=== PATIENT | female | born 1960 | race Caucasian/White ===

== ENCOUNTER 2017-08-06 03:10 | Emergency (ER) | payer OTHER, BC ==
[~2017-08-06 03:10] MED LIST: ACET325 PO; ALPR0.25 PO; ASPI81TA82 PO; JANU50TA5 PO; LISI-360 PO; LORTA5 PO; MOBI7.5T PO
[2017-08-06 03:12] VITALS: BP 176/91; PULSE 78; RESP 16; TEMP 97.7; O2SAT 96
[2017-08-06] MEDS ORDERED: KETOROLAC TROMETHAMINE 60 MG/2 ML (IM) VIAL IM ONE (03:30)
--- NOTE | 2017-08-06 03:33 | PD ---
HPI Chief Complaint: Pain: Acute or Chronic Time Seen by Provider: 03:18 Travel History International Travel<30 days: No Contact w/Intl Traveler<30days: No Traveled to known affect area: No History of Present Illness HPI Patient is a 57-year-old female presenting to emergency department for evaluation of sciatica. Patient states it has been a chronic issue since she had an axial load injury in September 2016. She reports pain radiates down the right leg. She states it is hard to sit still. She reports that she is currently on light duty at work and sitting is making her symptoms worse. She made her employer where and they accommodate her. She denies any numbness, weakness, bladder bowel incontinence, saddle paresthesia. She reports pain is a 7 out of 10. She was on diclofenac and cyclobenzaprine but this made her sleepy. She reports that ibuprofen also makes her sleepy. Symptom onset is chronic, symptoms are exacerbated with certain positions. PFSH Past Medical History Anxiety: Yes Cancer: Yes (OVARIAN) Diabetes: Yes Diverticulitis: Yes Hypertension: Yes Musculoskeletal: Yes (NECK PAIN) Immunizations Current: Yes Thyroid Disease: No Menopausal: Yes Past Surgical History Abdominal Surgery: Yes (OOPHORECTOMY, TAHBSO) AICD: No Hysterectomy: Yes (1997) Joint Replacement: No Oral Surgery: Yes (T & A) Pacemaker: No Tonsillectomy: Yes (CHILD) Other Surgery: Yes (CERVICAL FUSION 08/05) Social History Alcohol Use: Yes (OCC) Tobacco Use: No Substance Use: No Allergies-Medications (Allergen,Severity, Reaction): Coded Allergies: codeine (Unverified Allergy, Severe, HEADACHE, 08/06/17) pravastatin (Unverified Allergy, Intermediate, MUSCLE ACHE, 08/06/17) Reported Meds & Prescriptions Reported Meds & Active Scripts Active Review of Systems Except as stated in HPI: all other systems reviewed are Neg Musculoskeletal: Positive: Myalgias, Pain Physical Exam Narrative GENERAL: Well-developed, well-nourished, alert female presenting in no acute distress. SKIN: Warm and dry. HEAD: Atraumatic. Normocephalic. EYES: Pupils equal and round. No scleral icterus. No injection or drainage. ENT: No nasal bleeding or discharge. Mucous membranes pink and moist. NECK: Trachea midline. No JVD. CARDIOVASCULAR: Regular rate and rhythm. RESPIRATORY: No accessory muscle use. Clear to auscultation. Breath sounds equal bilaterally. GASTROINTESTINAL: Abdomen soft, non-tender, nondistended. Hepatic and splenic margins not palpable. MUSCULOSKELETAL: Extremities without clubbing, cyanosis, or edema. No obvious deformities. NEUROLOGICAL: Awake and alert. No obvious cranial nerve deficits. Motor grossly within normal limits. Five out of 5 muscle strength in the arms and legs. Normal speech. PSYCHIATRIC: Appropriate mood and affect; insight and judgment normal. Data Data Last Documented VS Vital Signs Date Time Temp Pulse Resp B/P (MAP) Pulse Ox O2 Delivery O2 Flow Rate FiO2 08/06/17 03:12 97.7 78 16 176/91 (119) 96 Orders Orders Ketorolac Inj (Toradol Inj) (08/06/17 03:30) Orphenadrine Inj (Norflex Inj) (08/06/17 09:00) Ed Discharge Order (08/06/17 03:27) [facility] Medical Decision Making Medical Screen Exam Complete: Yes Emergency Medical Condition: Yes Interpretation(s) Vital Signs Date Time Temp Pulse Resp B/P (MAP) Pulse Ox O2 Delivery O2 Flow Rate FiO2 08/06/17 03:12 97.7 78 16 176/91 (119) 96 Differential Diagnosis Sciatica versus radiculopathy versus strain versus spasm versus other Narrative Course Patient is a 57-year-old female presented to emerge from for evaluation of right lower back pain/sciatica. Symptoms are chronic in nature secondary to an injury last year. There has been no new injury. No focal deficits on exam. Patient was requesting Toradol and Norflex. She will be given a dose now. 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 She was encouraged to return to emergency department for any new or worsening symptoms. Patient to continue home medications as previously prescribed. Patient stable for discharge. Diagnosis Primary Impression: Sciatica Qualified Codes: M54.31 - Sciatica, right side Referrals: Primary Care Physician Patient Instructions: General Instructions, Sciatica (ED) Additional Instructions: Follow-up with your primary doctor Follow-up with orthopedic surgeon Return to emergency department for any new or worsening symptoms Med/Other Pt SpecificInfo: No Change to Meds Disposition: 01 DISCHARGE HOME Condition: Stable Nora Salazar August 06, 2017 03:33
[2017-08-06] MEDS ORDERED: ORPHENADRINE INJ 60 MG/2 ML AMP IM ONE (03:45)
[2017-08-06] MEDS ORDERED: ORPHENADRINE INJ 60 MG/2 ML AMP IM SCH (09:00)
== END 2017-08-06 03:55 | disposition home or self-care (01) ==
LOC: NEPD 03:10
DX: M54.31 Sciatica, right side (principal); E11.9 Type 2 diabetes mellitus without complications; I10 Essential (primary) hypertension; Z88.5 Allergy status to narcotic agent
CPT/HCPCS: 96372; 99283; J1885; J2360